=== PATIENT | female | born 1985 | race Native Hawaiian/Other Pacific Islander ===

== ENCOUNTER 2018-05-16 10:44 | Day surgery (SDC) | payer BC, OTHER ==
[2018-05-16 12:32] VITALS: BMI 22.4
[2018-05-16] MEDS ORDERED: Lidocaine 1% Inj (20ml) ONE (13:19)
--- NOTE | 2018-05-16 13:29 | CP.SDSHP ---
Same Day Surgery H & P - History Proposed Procedure: US guided left thyroid nodule FNA Pre-Op Diagnosis: left thyroid nodule - Allergies Allergies: Allergies No Known Allergies Allergy (Verified 05/16/18 12:32) - Physical Exam Vital Signs: Vital Signs 05/16/18 05/16/18 12:21 12:26 Temperature 97.9 F Pulse Rate 84 84 Respiratory 18 Rate Blood Pressure 150/89 O2 Sat by Pulse 99 Oximetry Mental Status: Alert & Oriented x3 - Impression Impression: Pt with a 3 cm left thyroid nodule. Plan US guided FNA. Pt. Evaluated Today:Candidate for Anesthesia & Procedure: No Short Stay Discharge - Short Stay Discharge Admitting Diagnosis/Reason for Visit: THYROID NODULE Disposition: HOME/ ROUTINE
--- NOTE | 2018-05-16 13:30 | PCM.SURG1 ---
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 Post-Operative Diagnosis: Left thyroid nodule Operation Performed: US guided FNA Specimen/Specimens Removed: 25 g FNA x 5 passes Estimated Blood Loss: EBL {In ML}: 0 Blood Products Given: N/A Drains Used: No Drains Post-Op Condition: Good Date of Surgery/Procedure: 05/16/18 Time of Surgery/Procedure: 13:25
[2018-05-16 13:44] VITALS: O2SAT 100
[2018-05-16 13:55] VITALS: BP 130/87; PULSE 84; RESP 18; TEMP 98.4
--- NOTE | 2018-05-18 10:42 | US ---
PROCEDURE: Date of Procedure: 05/16/2018 PROCEDURE: 1. Ultrasound guided FNA of left thyroid nodule, CPT 26096 2. Ultrasound guidance for FNA, 46805 Medications: 3cc 1% Lidocaine HISTORY: Enlarged left thyroid nodule. TECHNIQUE: Following informed consent and procedure time-out, a limited ultrasound patient's neck confirmed the presence of a 2.5 cm complex left thyroid nodule which is predominantly solid. After the patient's neck was prepped and draped in the usual sterile fashion, the skin was anesthetized with 1% lidocaine. Ultrasound-guided fine needle aspiration was then performed of the dominant left thyroid nodule. A total of 4 passes were made into the nodule with 25 gauge needle under ultrasound guidance. The FNA specimen was sent for routine pathology and genetics. Post biopsy ultrasound showed no hematoma. IMPRESSION: Ultrasound-guided FNA of the dominant left thyroid nodule.
== END 2018-05-16 14:00 | disposition home or self-care (01) ==
LOC: H.OPSURG 10:44
PROVIDERS: ATTEND Family Medicine
DX: E04.1 Nontoxic single thyroid nodule (principal)